=== PATIENT | male | born 1975 | race Caucasian/White ===

== ENCOUNTER 2025-05-19 08:35 | Outpatient (CLI) | payer OTHER, SELFPAY ==
--- NOTE | 2025-05-19 08:43 | ECG_ITS ---
Test Date: 2025-05-19 09:00:15 Measurements Intervals [place] Rate: 80 P: 45 UT: 175 QRS: 82 QRSD: 100 T: -25 QT: 339 QTc: 392 Interpretive Statements SINUS RHYTHM NONSPECIFIC T-WAVE ABNORMALITY No previous ECG available for comparison Electronically Signed On 05-19-2025 13:34:20 CONSTRUCTION FIELD ENGINEER by Samir Aranda M.D.
[2025-05-19 10:24] LABS: Anion Gap 9 mmol/L (4-12); Blood Urea Nitrogen 19 mg/dL (9-20); Calcium 10.1 mg/dL (8.4-10.2); Carbon Dioxide 28 mmol/L (22-30); Chloride 103 mmol/L (98-107); Estimated Glomerular Filt Rate > 60; Glucose 114 mg/dL (65-110); Potassium 4.4 mmol/L (3.4-5.0); Sodium 140 mmol/L (137-145)
== END 2025-05-19 08:36 | disposition home or self-care (01) ==
LOC: ANHSURGERY 08:39
PROVIDERS: Anesthesiology; PCP Nurse Practitioner; Visit Provider Orthopaedic Surgery
DX: E10.9 Type 1 diabetes mellitus without complications (principal); I10 Essential (primary) hypertension; Z01.818 Encounter for other preprocedural examination
CPT/HCPCS: 36415; 80048; 93005

== ENCOUNTER 2025-05-25 03:27 | Day surgery (SDC) | payer OTHER, SELFPAY ==
--- OUTSIDE RECORDS SUMMARY | 2011-02-26 18:00 | XMS_ITS | Continuity of Care Document ---
Author Organization [employer] [address] Address [address] [place] [address] Phone Care Team Providers Care Maintenance Service Supervisor Name Role Phone Conversion MD, Doctor Unavailable Unavailabl e Allergies, Adverse Reactions, Alerts Substance Reaction Status Criticality ciprofloxacin Other Active No Information CIPROFLOXACIN HCL Other Active No Informa tion Medications Medication Instructions Dosage Effective Dates (start - stop) Status Comments SIMVASTATIN 20MG TABS 1 QHS - Active ACTOS 15MG TABS 1 QD-daily - Active LANTUS 100 UNITS/ML VIAL 75 QHS - Active CLARITIN 10MG TABS 1 QD-daily - Active NASACORT AQ 55MCG APPLICS 2 QD-daily - Active TRILIPIX 45MG CAPS 1 QD-daily - Active GLUCOPHAGE XR 500 MG TAB SA 4 QPM - Active ZETIA 10MG TABS 1 DAILY - Active APIDRA 100 UNITS/ML VIAL 0 DIRECTE - Active 150-200 3 U, 200-250 5U, 250-300 8U, 300-350 10U, >350 12U holding 08/01 NEXIUM 40MG CAPS 1 QD - Active LANTUS 100 UNITS/ML VIAL 74 QHS - No Longer Active LANTUS 100 UNITS/ML VIAL 65 QHS - No Longer Active LANTUS 100 UNITS/ML VIAL 55 QHS - No Longer Active ALPRAZOLAM 0.5MG TABS 1 BID - No Longer Active LANTUS 100 UNITS/ML VIAL 50 QHS - No Longer Active VYTORIN 10-10 MG TABLET 0 DIRECTE - No Longer Active hold 03/31 LANTUS 100 UNITS/ML VIAL 35 QHS - No Longer Active VYTORIN 10MG-10MG TABS 1 QPM - No Longer Active GLUCOPHAGE XR 500 MG TAB SA 3 QPM - No Longer Active LANTUS 100 UNITS/ML VIAL 50 DIRECTE - No Longer Active holding 08/01 ZETIA 10MG TABS 1 DAILY - No Longer Active LANTUS 100 UNITS/ML VIAL 50 DIRECTE - No Longer Active APIDRA 100 U/ML UNITS 0 DIRECTE - No Longer Active 150-200 3 U, 200-250 5U, 250-300 8U, 300-350 10U, >350 12U GLUCOPHAGE XR 500MG TABS 2 QPM - No Longer Active LANTUS 100 U/ML UNITS 20 DIRECTE - No Longer Active AVANDIA 4MG TABS 1 QAM - No Longer Active MINOCYCLINE HCL 100MG CAPS 1 BID - No Longer Active Advance Directives Directive Yes / No Effective Date File Name No Information Encounters Encounter Description Practice Location Reason(s) For Visit Diagnoses Date Provider Providers Copied on Encounter [facility], [address], [place], [place], [id number] , [place] tel:[phone] Conversion Department No Information 1 Conversion Doctor. Jessica Amaya, [place], [address], [place]. [facility], [address], [place], [place], [address] , [place] tel:[phone] [facility] LONG-TERM USE MEDS NECHYPERLIPIDEMIA NEC/NOSBARRETT'S ESOPHAGUSDMI WO CMP NT ST UNCNTRLCHRONIC LIVER DIS NEC 2-201 [address] [place] [address] [place], [place], [address]. tel: [phone] [facility], [address], [place], [place], [address] , [place] tel: [phone] Krissy CHEST SWELLING/MASS/LUM P 2-201 0 [place] [address] [place], [place], [address]. tel: [phone] [facility], [address], [place], [place], [address] , [place] tel: [phone] [facility] DMI WO CMP UNCNTRLDMIXED HYPERLIPIDEMIAESO PHAGEAL REFLUXCHRONIC SINUSITIS NOS 8200 9 [place] [address] [place], [place], [address]. tel: [phone] [facility], [address], [place], [place], [address] , [place] tel: [phone] [facility] DMII WO CMP NT ST UNCNTR 3-200 9 [place] [address] [place], [place], [address]. tel: [phone] [facility], [address], [place], [place], [address] , [place] tel: [phone] [facility] ANXIETY STATE NOS 9-200 9 [place] [address] [place], [place], [address]. tel: [phone] [facility], [address], [place], [place], [address] , [place] tel: [phone] [facility] DMI NEURO UNCNTRLDSCREEN MAL NEOP-RECTUM 8-200 9 [place] [address] [place], [place], [address]. tel: [phone] [facility], [address], [place], [place], [address] , [place] tel: [phone] Krissy CHEST PAIN NEC 200 [address] [place] [address] [place], [place], [address]. tel:[phone] [employer] [facility] [address], [address], [place], [place], [address] , [place] tel: [phone] Krissy ND VAC STRPTCS PNEUMNI BVACCIN FOR INFLUENZA 200 [address] [place] [address] [place], [place], [address]. tel:[phone] [facility], [address], [place], [place], [address] , [place] tel: [phone] Krissy GOUT NOS 8 [place] [address] [place], [place], [address]. tel:[phone] [facility], [address], [place], [place], [address] , [place] tel: [phone] Krissy DMI RENL NT [facility] KIDNEY DIS STAGE II 8 [place] [address] [place], [place], [address]. tel:[phone] [facility], [address], [place], [place], [address] , [place] tel: [phone] Krissy ACUTE SINUSITIS NOS 0200 7 Conversion Doctor. [address] [facility], [place], [address], [place]. [facility], [address], [place], [place], [address] , [place] tel: [phone] Krissy ROTATOR CUFF RUPTURE 9200 [address] [place] [address] [place], [place], [address]. tel:[phone] [employer] [address], [address], [place], [place], [address] , [place] tel: [phone] Krissy No Information 7-200 6 [place] [address] [place], [place], [address]. tel:[phone] [facility], [address], [place], [place], [address] , tel: [phone] Krissy SCREEN LIPOID DISORDERS 6 Clari Chinchillaorah. [address] [place], [place], [address]. tel:[phone] [facility], [address], [place], [place], [address] , tel: [phone] Krissy ROUTINE MEDICAL EXAM 6 [place] [address] [place], [place], [address]. tel:[phone] Family History Family Member Type Diagnosis Age At Onset No Information Immunizations Vaccine Date Status Comments 54521 - Pneumococcal_PPV23 administered S ource: Source Unspecified 07205 - Influenza administered Source: So urce Unspecified Payers Payer name Insurance type Covered green party ID Authoriza tion(s) No Information Social History Type Description Quantity Date Captured Comments Sex Male Smoking Status No Information Chief Complaint And Reason For Visit No Information Reason For Referral Reason For Referral No Information History Of Present Illness Encounter Date Complaint History Of Prese nt Illness No Information Functional Status Date Functional Assessmen t No Information Instructions Date Instruction Additional Infor mation No Information Assessments Type Assessment Date No Information Patient Care Teams Name Effective Dates (start - stop) Status Members No Information
[2025-05-18 14:42] VITALS: BMI 29.0
--- NOTE | 2025-05-18 15:16 | PC.NURSE ---
[facility] has started construction of its new state of the art ER which will open Spring 2026. With this, we anticipate parking may be a challenge for some our surgical patients and families. Parking spaces are limited but are available for all Surgical, obstetrics, and ER patients sharing this lot. If you arrive and find you are having a hard time finding a parking space, please note that we understand the challenges, please drive around the hospital and park near Hospital Entrance 1. When you enter this entrance, you can ask a volunteer to direct or take you back to the surgical waiting area to check in. We appreciate everyone?s understanding of these expected challenges while we build for your future. Report to the Outpatient Waiting Room, entrance under the green pavilion located off [facility] [address], at time _10:00AM on date _05/25/25 . Planned Procedure Time: _12:00AM .? Time changes happen often and if your time is changed the preop area will call you the afternoon before. - You and your visitor will be asked to self-screen and do not enter if you have any COVID symptoms. Please call surgeon if you need to reschedule. - A mask is optional within the hospital at this time. Patients may have clear liquids (water, carbonated beverages, clear teas, apple juice) until 3 hours prior to surgery(09:00AM) with a maximum of 20 ounces. - No food from midnight until time of surgery and no smoking, or chewing tobacco (or any form of nicotine). No chewing gum, candy or mints. Take only the following medications with a SIP of water on the morning of surgery: _NIFEDIPINE, TRAMADOL IF NEEDED, FLEXERIL IF NEEDED DO NOT ALTER INSULIN PUMP BASAL RATE; APPLY DEXCOM TO RT ARM DO NOT STOP ANY OF YOUR OTHER PRESCRIPTION MEDICATIONS PRIOR TO SURGERY EXCEPT THE FOLLOWING Hold all vitamins and supplements for 3 days per anesthesiologist. Medications to discontinue per physician ____N/A Date to take last dose N/A Please no make-up, nail citizen of [place], hairspray, perfume, deodorant, or body powder the day of surgery.? No jewelry (including any body piercings) or valuables the day of surgery, leave them at home.? Please take a shower or bath the night before, or the morning of, surgery with an antibacterial soap.? Wear comfortable, loose fitting clothing.? - Jewelry must be removed prior to entering the operating room.? Rings and piercings that are not removed may be cut off. - The hospital will not accept responsibility for valuables.? - Please leave all valuables, including medications, at home the day of surgery. If you are going home after surgery, a licensed mobile lounge driver must drive you home.? - NO public transportation without another adult if you receive anesthesia. - We recommend that an adult stay with you for 24 hours following discharge. - We also recommend that you do not drive, make important decision, drink alcoholic beverages, or take any drugs that were not prescribed by your health care provider for at least 24 hours after your discharge time. Follow any additional instructions given to you from your surgeon. Telephone instructions given to __DOUG ;-) and asked if any additional questions and then verbalized understanding. Patient advised to call surgeon office or pre surgery nurse liaison [phone] if any additional questions.
[2025-05-25] VITALS (7 sets, daily range): BP systolic 120–148; BP diastolic 78–93; PULSE 77–90; RESP 16–22; TEMP 36.8–37.2; O2SAT 97–100
--- OUTSIDE RECORDS SUMMARY | 2025-05-25 03:30 | XMS_ITS | Encounter Summary ---
Author Organization [facility] Address [facility] [place] [address] Care Team Providers Care Poker Prop Player Name Role Phone Pravin Rowley MD Unavailable [phone] Apple Myles NP Primary Care Provider [phone] Yohannes Heart MD Unavailable [phone] Reason for Referral * Surgical (Routine) - Closed Specialty Diagnoses / Procedures Referred By Ravinder villanueva Referred To Contact Procedures Case request operating room: INJECTION EPIDURAL TRANSFORAMINAL L5-S1 Juanita Hart NP [address] [facility] [address] [place] [address] Phone: tel: [phone] fax: Referral ID Status Reason Start Date Expiration Date Visits Re quested Visits Authorized [id number] Closed 12/14/2020 01/13/2022 1 1 Encounter Details Date Type Department Care Team (Late st Contact Info) Description 12/14/2020 Prep for Procedure [facility] [place] [address] [id number] Juanita Hart NP [address] [facility] [address] [place] [phone] (Work) Social History Tobacco Use Types Packs/Day Years Used Date Smoking Tobacco: Former Cigarettes 2 17 0 03/13/1988 - 2004 Cigars Smokeless Tobacco: Never Alcohol Use Standard Drinks/Week Comments Not Currently 0 (1 standard drink = 0.6 oz pur e alcohol) PHQ-2 Answer Date Recorded PHQ-2 Score - If the patient scores above 3, please move on to questions 3-9 1 09/06/2020 Sex and Gender Information Value Date Recorded Sex Assigned at Male 07/19/2024 5:02 PM REIKI PRACTITIONER Legal Sex Male 8:01 PM CDT Gender Identity Not on file Sexual Orientation Not on file Occupation Industry Job Start Date Job End Date [employer] Not on file Not on file Not on file COVID-19 Exposure Response Date Recorded In the last month, have you been in contact with someone who was confirmed or suspected to have Coronavirus / COVID-19? No / Unsure 12/14/2020 1:01 PM CDT documented as of this encounter Functional Status * RETIRED Are you deaf or do you have serious difficulty hearing Answer Date of Assessment Author Status No 06/03/2020 7:19 PM REIKI PRACTITIONER Activ e * RETIRED Are you blind or do you have serious difficulty seeing, even when wearing glasses? Answer Date of Assessment Author Status No 06/03/2020 7:19 PM REIKI PRACTITIONER Activ e * Do you have serious difficulty walking or climbing stairs? Answer Date of Assessment Author Status No 06/03/2020 7:19 PM Jazmín Giles RN Active * Do you have difficulty dressing or bathing? Answer Date of Assessment Author Status Yes 06/03/2020 7:19 PM Jazmín Giles RN Active * Because of a physical, mental, or emotional condition, do you have difficulty doing errands alone such as visiting a doctor's office or shopping? Answer Date of Assessment Author Status No 06/03/2020 7:19 PM Jazmín Giles RN Active documented as of this encounter Mental Status * Because of a physical, mental, or emotional condition, do you have serious difficulty concentrating, remembering, or making decisions? Answer Entry Date Author Status No 06/03/2020 7:19 PM Jazmín Giles RN Active documented in this encounter Plan of Treatment Scheduled Orders Name Type Priority Associated Diagnoses Order Schedule Case request operating room: INJECTION EPIDURAL TRANSFORAMINAL L5-S1 Case Request Routine Once for 1 Occurrences starting 12/14/2020 until 12/14/2020 documented as of this encounter Visit Diagnoses Not on filedocumented in this encounter Additional Health Concerns Infection Onset Date Last Indicated Resolved Time COVID-19 Rule Out 07/19/2024 07/19/2024 07/19/2024 6:00 PM REIKI PRACTITIONER documented as of this encounter Care Teams Poker Prop Player Relationship Specialty Start Date End Date Apple Myles NP [address] [place] [address] PCP - General NURSE PRACTITIONER 01/21/20 Pravin Rowley MD [address] [address] [place] Examiner CARDIOVASCULAR DISEASE 12/17/17 06/08/24 Yohannes Heart MD [address] [place] [address] INTERNAL MEDICINE 05/31/20 documented as of this encounter
--- OUTSIDE RECORDS SUMMARY | 2025-05-25 03:30 | XMS_ITS | Encounter Summary ---
Author Organization [facility] Address [address] [place] [address] Care Team Providers Care Short Goods Drier Name Role Phone Pravin Rowley MD Unavailable [phone] Apple Myles NP Primary Care Provider [phone] Yohannes Heart MD Unavailable [phone] Encounter Details Date Type Department Care Team (Late st Contact Info) Description 08/15/[address] [facility] - [place] [address] [place] [address] Apple Myles NP [address] [place] [address] Medication Questions Social History Tobacco Use Types Packs/Day Years Used Date Smoking Tobacco: Former Cigarettes 2 17 1 988 - 2005 Smokeless Tobacco: Never Alcohol Use Standard Drinks/Week Comments Yes 5 (1 standard drink = 0.6 oz pur e alcohol) weekly a few beers PHQ-2 Answer Date Recorded PHQ-2 Score 0 01/21/2020 Sex and Gender Information Value Date Recorded Sex Assigned at Male 07/19/2024 5:02 PM FLY TIER Legal Sex Male 8:01 PM CDT Gender [...] have Coronavirus / COVID-19? No / Unsure 08/03/2020 8:38 AM FLY TIER documented as of this encounter Functional Status * RETIRED Are you deaf or do you have serious difficulty hearing Answer Date of Assessment Author Status No 06/03/2020 7:19 PM FLY TIER Activ e * RETIRED Are you blind or do you have serious difficulty seeing, even when wearing glasses? Answer Date of Assessment Author Status No 06/03/2020 7:19 PM FLY TIER Activ e * Do you have serious [...] Giles RN Active documented in this encounter Progress Notes * Apple Myles NP - 08/19/2020 10:33 AM CST I spoke to pt and questions answered He is going to call endo today to discuss insulin pump TIER * Apple Myles NP - 08/17/2020 9:08 AM CST I called pt and left message TIER * Lexx Sanchez RN - 08/15/2020 2:10 PM CST Please advise. Thanks TIER documented in this encounter Plan of Treatment Not on file documented as of this encounter Visit Diagnoses Not on filedocumented in this encounter Additional Health Concerns Infection Onset Date Last Indicated Resolved Time COVID-19 Rule Out 07/19/2024 07/19/2024 07/19/2024 6:00 PM FLY TIER documented as of this encounter Care Teams Short Goods Drier Relationship Specialty Start Date End Date Apple Myles NP [address] [place] [address] PCP - General NURSE PRACTITIONER 01/21/20 Pravin Rowley MD [facility]. [facility] [address] [place] [address] [place] [facility] Chief CARDIOVASCULAR DISEASE 12/17/17 06/08/24 Yohannes Heart MD [address] [place] [address] INTERNAL MEDICINE 05/31/20 documented as of this encounter
--- OUTSIDE RECORDS SUMMARY | 2025-05-25 03:30 | XMS_ITS | Clinical Summary ---
Author Organization [facility] Address [facility] [place] [address] Care Team Providers Care Weigher Alloy Name Role Phone Shameka Apple WELLS Primary Care Provider [phone] Yohannes Heart MD Unavailable [phone] Allergies Active Allergy Reactions Criticality Noted Date Comments Ciprofloxacin Shortness of Breath,Rash High 11/23/19 18 Medications fish oil 1000 MG Cap capsule Take 1 capsule (1,000 mg total) by mouth daily. Active vitamin D3, cholecalciferol, 2000 units Tab Take 1 tablet (2,000 Units total) by mouth daily. 2017 Active Melatonin 5 MG Cap Take 1 capsule by mouth nightly. 2017 Active CPAP MACHINE CPAP11 CM HS use while [id number], VentrapragadaActive 2017 Active testosterone cypionate 200 MG/ML injection Inject 1 mL (200 mg total) into the muscle once a week. Sundays Active magnesium oxide 400 MG tablet Take 1 tablet (400 mg total) by mouth nightly. Active cetirizine 10 MG tablet Take 1 tablet (10 mg total) by mouth daily. 2019 Active ULTICARE INSULIN SYRINGE 29G X 1/2 1 ML Misc see administration instructions. 2020 Active SAFETY-GABRIEL 3CC SYR 23GX1 23G X 1 3 ML Misc see administration instructions. 2020 Active Continuous Blood Gluc Animal Physiology Teacher (DEXCOM G7 GLOVE BRUSHER) DeviceIndication s:Type 1 diabetes mellitus with hyperglycemia (CMS/HCC HHS/HCC) Use daily 1 each 1 2022 Active SUMAtriptan (IMITREX) 50 MG tablet Take 1 tablet (50 mg total) by mouth 2 (two) times daily as needed for Migraine. Max of 4 tablets (200 mg) in 24 hours. 30 tablet 2023 Active metFORMIN ER (GLUCOPHAGE-XR) 500 MG 24 hr tabletIndication s:Type 2 diabetes mellitus with hyperglycemia, without long-term current use of insulin ([facility]) TAKE 1 TABLET BY MOUTH EVERY DAY WITH BREAKFAST 90 tablet 3 2024 Active ondansetron (ZOFRAN-ODT) 4 MG disintegrating tablet Take 1 tablet (4 mg total) by mouth every 8 (eight) hours as needed for Nausea. 20 tablet 2024 Active insulin lispro (HUMALOG) 100 UNIT/ML injection (VIAL)Indication s:Type 1 diabetes mellitus without complication ([facility]) USE UP TO 110 UNITS DAILY PER PUMP 100 mL 3 2024 Active NIFEdipine ER (ADALAT CC) 30 MG 24 hr tabletIndication s:Essential hypertension Take 1 tablet (30 mg total) by mouth daily. 90 tablet 2024 Active pantoprazole EC (PROTONIX) 40 MG tabletIndication s:Health care maintenance TAKE 1 TABLET BY MOUTH 2 TIMES DAILY BEFORE MEALS. 180 tablet 1 2024 Active sertraline (ZOLOFT) 50 MG tablet Take 1 tablet (50 mg total) by mouth daily. 2024 Active traZODone (DESYREL) 50 MG tabletIndication s:Insomnia, unspecified type Take 1 tablet (50 mg total) by mouth nightly at bedtime. 90 tablet 1 08/02 Active losartan (COZAAR) 25 MG tabletIndication s:Essential hypertension Take 1 tablet (25 mg total) by mouth daily. 90 tablet 1 2024 Active fluticasone propionate (FLONASE) 50 MCG/ACT nasal spray spray 2 sprays in each nostril twice a day 2024 Active ARMOUR THYROID 60 MG tablet Take 1 tablet (60 mg total) by mouth daily. 2024 Active Continuous Glucose Sensor ([employer] G7 SENSOR) MiscIndications: Diabetes mellitus type 1 ([facility]) USE TO MONITOR BLOOD SUGAR DAILY. CHANGE EVERY 10 DAYS. 9 each 9 2024 Active cyclobenzaprine (FLEXERIL) 10 MG tabletIndication s:Chronic left shoulder pain,Abnormal MRI TAKE 1 TABLET BY MOUTH EVERY DAY NIGHTLY NEEDED FOR MUSCLE SPASMS 30 tablet 1 2024 Active cyclobenzaprine (FLEXERIL) 10 MG tabletIndication s:Chronic left shoulder pain,Abnormal MRI Take 1 tablet (10 mg total) by mouth nightly as needed for Muscle Spasms. 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 Cervical spine instability 06/03/2020 S/P cervical spinal fusion 06/03/2020 Radiculopathy, cervical 05/04/2020 DDD (degenerative disc disease), cervical 2019 Cervical stenosis of spine 05/04/2020 Cervical disc herniation 05/04/2020 Foraminal stenosis of cervical region 05/04/2020 Other intervertebral disc degeneration, lumbar r egion 07/31/2018 Bulging lumbar disc 07/31/2018 Lumbar foraminal stenosis 07/31/2018 S/P cardiac cath 02/04/2018 CPAP (continuous positive airway pressure) depen dence 12/17/2017 Leukopenia 11/28/2017 Obese 02/05/2017 Callejas esophagus 01/28/2017 Fatty liver 09/27/2016 Insomnia 02/22/2016 Impingement syndrome of right shoulder 2 Essential hypertension Hyperlipidemia Resolved Problems Problem Noted Date Diagnosed Date Resolved Date Type 1 diabetes mellitus wit h diabetic peripheral angiopathy without gangrene 07/14/2019 0 08/07/2022 Low back pain 11/22/2017 04/29/2019 RAY (obstructive sleep apnea) 10/14/2017 04/29/2019 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 0 08/07/2022 Overview (02/10/2018): of LAD on angiogram in 2018 Hypercalcemia 08/02/2014 02/21/2020 Elevated liver enzymes 02/15/201408/07 Type 2 diabetes mellitus 02/24/2013 Encounter for preventive health examination 02/18/2012 04/29/2019 SOBOE (shortness of breath on exertion) 04/29/2019 Abnormal EKG 04/29/2019 Encounters Date Type Department Care Team Description 04/08/2025 Scan [facility] Scanned, Doc Med [facility] 03/01/2025 12:00 PM CDT Telemedicine [facility] Medical Group Family Medicine - [place] [address] [place] [address] Apple Myles NP MRI Results 03/01/2025 Travel 02/25/2025 Scan [facility] SRVCS Scanned, Doc Med [facility] from Last 3 Months Immunizations Immunization Administration Dates Next Due Afluria 36 MONTHS+ (Prefille d Syringe IIV4) 05/18/2019 Fluzone 6 Months+ Quad (0.5 mL Prefilled Syringe) 03/06/2020 Influenza (Generic) 05/05/2014 Influenza Adult (Generic) 04/25/2020,04/2019,06/09/2018,2017 PFIZER COVID-19 (ORIGINAL FORMULATION, PURPLE CAP) mRNA, LNP-S, PF, 30 MCG/0.3 ML DOSE 09/20/2020,08/30/2020 Pneumococcal (Pneumovax 23) 06/09/2015 Tdap (Boostrix) 09/18/2023 Family History Medical History Relation Comments Hypertension Father Seizures Father ibs Father Diabetes Maternal Grandfather Breast Cancer Maternal Grandmother Cancer Maternal Grandmother Breast canc er Cancer Maternal Uncle Lung cancee Arthritis Mother Breast Cancer Mother Cancer Mother Breast cancer Alzheimers Other Relation Status Comments Daughter 1 Alive Daughter 2 Alive Father Alive Maternal Grandfather Maternal Grandmother Maternal Uncle Mother Alive Other Son Alive Social History Tobacco Use Types Packs/Day Years Used Date Smoking Tobacco: Former Cigarettes 2 17 1 988 - 2005 Cigars Passive Smoke Exposure: Past Smokeless Tobacco: Never Tobacco Cessation:Counseling Given: No Alcohol Use Standard Drinks/Week Comments Not Currently 0 (1 standard drink = 0.6 oz pur e alcohol) socially / but rarely [facility] Utilities Answer Date Recorded In the past 12 months has th e electric, gas, oil, or water company threatened to shut off services in your home? No 04/24/2024 Humiliation, Afraid, Rape, and Kick questionnair e Answer Date Recorded Within the last year, have y ou been afraid of your partner or ex-partner? No 04/24/2024 Within the last year, have y ou been humiliated or emotionally abused in other ways by your partner or ex-partner? No Within the last year, have y ou been kicked, hit, slapped, or otherwise physically hurt by your partner or ex-partner? No 04/24/2024 Within the last year, have y ou been raped or forced to have any kind of sexual activity by your partner or ex-partner? No 04/24/2024 Overall Financial Resource Strain (CARDIA) Answe r Date Recorded How hard is it for you to pa y for the very basics like food, housing, medical care, and heating? Not hard at all 04/24/2024 PHQ-2 Answer Date Recorded Patient Health Questionnaire-2 Score 0 02/03/2025 Hunger Vital Sign Answer Date Recorded Within the past 12 months, y ou worried that your food would run out before you got the money to buy more. Never true 04/24/20 24 Within the past 12 months, t he food you bought just didn't last and you didn't have money to get more. Never true 04/24/2024 PRAPARE - Transportation Answer Date Re corded In the past 12 months, has l ack of transportation kept you from medical appointments or from getting medications? No 06/2023 In the past 12 months, has l ack of transportation kept you from meetings, work, or from getting things needed for daily living? No 04/24/2024 Housing Stability Vital Sign Answer Chong e Recorded In the last 12 months, was t here a time when you were not able to pay the mortgage or rent on time? No 06/27/2023 In the last 12 months, how many places have you lived? 1 06/27/2023 In the last 12 months, was t here a time when you did not have a steady place to sleep or slept in a mcfp (including now)? No 06/27/2023 Housing Stability Vital Sign Answer Chong e Recorded In the last 12 months, was t here a time when you were not able to pay the mortgage or rent on time? No 04/24/2024 In the past 12 months, how m any times have you moved where you were living? 0 04/24/2024 At any time in the past 12 m [facility], were you homeless or living in a mcfp (including now)? 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 Not on file Not on file Not on file Last Filed Vital Signs Vital Sign Reading Time Taken Comments Blood Pressure 148/93 02/03/2025 2:11 PM CDT Pulse 77 02/03/2025 1:26 PM CDT Temperature 36.4 C (97.5 F) 02/03/2025 1:26 PM CDT Respiratory Rate 18 02/03/2025 1:26 PM CDT Oxygen Saturation 98% 02/03/2025 1:26 PM CDT Inhaled Oxygen Concentration - - Weight 97 kg (213 lb 12.8 oz) 02/03/2025 1:26 PM CDT Height 180.3 cm (5' 11) 02/03/2025 1:26 PM CDT Body Mass Index 29.82 02/03/2025 1:26 PM CDT Plan of Treatment Health Maintenance Due Date Last Done Comments Hepatitis C 1992 Hepatitis A Vaccines (1 of 2 - Risk 2-dose series) 1993 Hepatitis B Vaccines (1 of 3 - 19+ 3-dose series) 1993 Pneumococcal Vaccine: 50+ Years (2 of 2 - PCV) 06/09/2016 06/09/2015 Annual Physical 06/01/2022 06/01/2021 Diabetes: Retinopathy Eye Exam 04/17/2024 04/17/2022, 04/21/2021, 04/05/2020 Zoster Vaccines (1 of 2) 2024 COVID-19 Vaccine ( - 2024- season) 2025 09/20/2020, 08/30/2020 Influenza Adult (#1) 2025 04/25/2020, 03/06/2020, 06/03/2019, Additional history exists Hemoglobin A1C 08/06/2025 02/03/2025, 11/0 06/2023, 06/18/2023, Additional history exists Kidney Health Evaluation 02/03/2026 02/03/2025 Lipid Panel 02/03/2026 02/03/2025, 07/08/2022, 06/19/2021, Additional history exists EGD-Callejas's Surveillance 09/09/2026 09/10/2023, Colorectal Cancer Screening Colonoscopy (10 Years) 09/09/2033 09/10/2023, 09/10/2023 DTaP, Tdap and Td Vaccines (2 - Td or Tdap) 09/17/2033 09/18/2023 PHQ-2 (Physician [place]) Completed 02/03/2025 Meningococcal B Vaccine Aged Out No l onger eligible based on patient's age to complete this topic Meningococcal Vaccine Aged Out No gurwinder tulio eligible based on patient's age to complete this topic RSV Immunizations Under 20 Months Aged Out No longer eligible based on patient's age to complete this topic Goals Goal Patient Goal Type Associated Problems Recent Progress Patient-Stated? Author Family - family caregiver with be involved in care transitions and discharge planning Lifestyle No Asha Worthington, REGISTRAR COLLEGE OR UNIVERSITYepidemiology investigator Devices Implanted Type Area Rim Roller Operator Device Identifier Shelf Expiration Date Model / Serial / Lot Bio4 Viable Bone Matrix Spine Implanted:Qty : 1 on 06/03/2020 by Ted Sargent MD at [facility] N/A: Spine Cervical [employer] - DIV [employer]LLY [employer]OWAN 10/30/[id number] 160 [place] Interbody System (Cervical Interbody) [id number] 7degree Implanted:Qty : 1 on 06/03/2020 by Ted Sargent MD at [facility] N/A: Spine Cervical [employer] - DIV [employer] [id number] 02/08/2025 [id number] / / [id number] Description:C6-C7 [place] Interbody System (Cervical Interbody) [id number] 7degree Implanted:Qty : 1 on 06/03/2020 by Ted Sargent MD at [facility] N/A: Spine Cervical [employer] - [employer] [id number] 02/08/2025 [id number] / / [id number] 34 Description:C5-C6 16 Mm Self Tapping Screw Implanted:Qty : 1 on 06/03/2020 by Ted Sargetn MD at [facility] N/A: Spine Cervical [employer] - DIV [employer]OWAN [id number] / / 44mm Plate Implanted:Qty : 1 on 06/03/2020 by Ted Sargent MD at [facility] N/A: Spine Cervical [employer] - [employer] [id number] / / [id number] Implanted:Qty : 1 on 06/03/2020 by Ted Sargent MD at [facility] N/A: Spine Cervical [employer] - [employer]OW[employer] [id number] / [id number] / Explanted Type Area Rim Roller Operator Device Identifier Shelf Expiration Date Model / Serial / Lot Distration Pin 12mm - [id number] Explanted:Qty: 2 on 06/03/2020 by Ted Sargent MD at [facility] Pin N/A: Spine Cervical [employer] [id number] / / Procedures Procedure Name Priority Date/Time Associated Diagnosis Comments HC LIPID PANEL Routine 02/03/2025 4:20 PM CDT Type 1 diabetes mellitus without complication (CMS/HCC HHS/HCC) HC GLYCOSYLATED HGB Routine 02/03/2025 4 :20 PM CDT Type 1 diabetes mellitus without complication (CMS/HCC HHS/HCC) EGD Routine 09/10/2023 12:51 PM CDT COLONOSCOPY Routine 09/10/2023 12:51 PM CDT DIABETIC RETINOPATHY EXAM (NEGATIVE)(SCAN ORDER) Routine 04/17/2022 from Last 3 Months or Most Recently Relevant to Health Maintenance Results * (ABNORMAL) HEMOGLOBIN, GLYCOSYLATED (02/03/2025 4:20 PM CDT) HGB A1C 7.6(H) <5.7 % 02/03/2025 4:50 PM CDT [facility] Comment: ADA GUIDELINES 2010 5.7 TO 6.4% INCREASED RISK OF DIABETES > OR = 6.5% CONSISTENT WITH DIABETES ESTIMATED AVG GLUCOSE 171 mg/dL 02/03/2025 4:50 PM CDT [facility] 02/03/2025 4:20 PM CDT Apple Myles NP LABORATORY Final Result [facility] [address] [id number], [place] [phone] * (ABNORMAL) LIPID PANEL (02/03/2025 4:20 PM CDT) CHOLESTEROL 200(H) <200 MG/DL 02/03/2025 5:07 PM CDT [facility] TRIGLYCERIDES 363(H) <150 MG/DL 02/03/2025 5:07 PM CDT [facility] HDL 38(L) >40.0 MG/DL 02/03/2025 5:07 PM CDT [facility] LDL (CALCULATED) 89 <100 MG/DL 02/03/2025 5:07 PM CDT [facility] Comment:CALCULATED USING THE FRIEDEWALD EQUATION NON HDL CHOLESTEROL 162(H) <130 MG/DL 02/03/2025 5:07 PM CDT [facility] CHOL/HDL RATIO 5.3(H) 0.0 - 4.5 02/03/2025 5:07 PM CDT [facility] VLDL CALCULATION 73(H) 5 - 55 MG/DL 02/03/2025 5:07 PM CDT [facility] LIPID INTERPRETATION 02/03/2025 5:07 PM CDT [facility] Comment: NIH CONCENSUS REPORT RECOMMENDATIONS: ADULT CHILD LOW RISK: CHOLESTEROL <200 <170 TRIGLYCERIDE <150 --- HDL >=60 --- LDL <100 <110 BORDERLINE: CHOLESTEROL 200-239 170-199 TRIGLYCERIDE 150-199 --- HDL 40-59 --- LDL 100-159 110-129 HIGH RISK: CHOLESTEROL >=240 >=200 TRIGLYCERIDE >=200 --- HDL <40 --- LDL >=160 >=130 02/03/2025 4:20 PM CDT Apple Myles POSTDOCTORAL SCIENTIST LABORATORY Final Result Performing Organization Address [facility] Phone Number [facility] [address] [place] [address], * DIABETIC RETINOPATHY EXAM (NEGATIVE)(SCAN) (04/17/2022) Doc [facility] Scanned SCANNING Final Resu lt Performing Organization Address [facility] Co de Phone Number [facility] ONBASE from Last 3 Months or Most Recently Relevant to Health Maintenance Insurance R Advance Directives * Full Code (Latest Code Status on File) Date Activated Date Inactivated Comments 04/23/2024 11:17 PM 04/27/2024 3:49 PM * Full Code Date Activated Date Inactivated Comments 06/26/2023 9:26 PM 06/29/2023 2:03 PM * Full Code Date Activated Date Inactivated Comments 06/03/2020 7:05 PM 06/04/2020 6:16 PM Care Teams Weigher Alloy Relationship Specialty Start Date End Date Apple Myles NP [address] [place] [address] PCP - General NURSE PRACTITIONER 01/21/20 Yohannes Heart MD [address] [place] [address] INTERNAL MEDICINE 05/31/20
--- OUTSIDE RECORDS SUMMARY | 2025-05-25 03:30 | XMS_ITS | Encounter Summary ---
Author Organization [facility] Address [facility] [place] [address] Care Team Providers Care Financial Systems Analyst Name Role Phone Pravin Rowley MD Unavailable [phone] Apple Myles NP Primary Care Provider [phone] Yohannes Heart MD Unavailable [phone] Encounter Details Date Type Department Care Team (Latest Contact Info) Description 05/05/2020 [employer] Message Enc [facility] Medical Group Multispecialty Care - [facility] [address] [facility], [address] [place] [address] Gabriel Pacheco MD [address] [place] [id number] RE: Test Results Social History Tobacco Use Types Packs/Day Years Used Date Smoking Tobacco: Former Cigarettes 2 17 1 988 - 2005 Smokeless Tobacco: Never Alcohol Use Standard Drinks/Week Comments Yes 0 (1 standard drink = 0.6 oz pur e alcohol) weekly PHQ-2 Answer Date Recorded PHQ-2 Score 0 01/21/2020 Sex and Gender Information Value Date Recorded Sex Assigned at Male 07/19/2024 5:02 PM PHYSICIAN ASSISTANT CERTIFIED Legal Sex Male 8:01 PM CDT Gender [...] have Coronavirus / COVID-19? No / Unsure 05/04/2020 8:58 AM PHYSICIAN ASSISTANT CERTIFIED documented as of this encounter Plan of Treatment Not on file documented as of this encounter Visit Diagnoses Not on filedocumented in this encounter Additional Health Concerns Infection Onset Date Last Indicated Resolved Time COVID-19 Rule Out Comment:Resolving 05/31/2020 05/31/2020 06/02/2020 1:[address] COVID-19 Rule Out 07/19/2024 07/19/2024 07/19/2024 6:00 PM PHYSICIAN ASSISTANT CERTIFIED documented as of this encounter Care Teams Financial Systems Analyst Relationship Specialty Start Date End Date Apple Myles NP [address] [place] [address] PCP - General NURSE PRACTITIONER 01/21/20 Pravin Rowley MD Three [facility]. [address] [address] [place] Air Route Traffic Controller CARDIOVASCULAR DISEASE 12/17/17 06/08/24 Yohannes Heart MD [address] [place] [address] INTERNAL MEDICINE 05/31/20 documented as of this encounter
--- OUTSIDE RECORDS SUMMARY | 2025-05-25 03:31 | XMS_ITS | Encounter Summary ---
Author Organization [facility] Address [address] [place] [address] Care Team Providers Care Register In Chancery Name Role Phone Pravin Rowley MD Unavailable [phone] Apple Myles NP Primary Care Provider [phone] Yohannes Heart MD Unavailable [phone] Encounter Details Date Type Department Care Team (Late st Contact Info) Description 03/03/2021 [employer] Message Enc [facility] Medical Group Family Medicine - [place] [address] [place] [address] Apple Myles NP [address] [place] [address] RE: Referral Request Social History Tobacco Use Types Packs/Day Years Used Date Smoking Tobacco: Former Cigarettes 2 17 0 03/13/1988 - 2004 Cigars Smokeless Tobacco: Never Alcohol Use Standard Drinks/Week Comments Not Currently 0 (1 standard drink = 0.6 oz pur e alcohol) PHQ-2 Answer Date Recorded PHQ-2 Score - If the patient scores above 3, please move on to questions 3-9 0 02/16/2021 Sex and Gender Information Value Date Recorded Sex Assigned at Male 07/19/2024 5:02 PM DIRECT MARKETING REPRESENTATIVE Legal Sex Male 8:01 PM CDT Gender [...] have Coronavirus / COVID-19? No / Unsure 02/16/2021 8:49 AM CDT documented as of this encounter Functional Status * RETIRED Are you deaf or do you have serious difficulty hearing Answer Date of Assessment Author Status No 06/03/2020 7:19 PM DIRECT MARKETING REPRESENTATIVE Activ e * RETIRED Are you blind or do you have serious difficulty seeing, even when wearing glasses? Answer Date of Assessment Author Status No 06/03/2020 7:19 PM DIRECT MARKETING REPRESENTATIVE Activ e * Do you have serious [...] Rule Out 07/19/2024 07/19/2024 07/19/2024 6:00 PM DIRECT MARKETING REPRESENTATIVE Assessment Noted Time PHQ-9 Depression Total Score: 0 02/17/20 21 8:57 AM CDT documented as of this encounter Care Teams Register In Chancery Relationship Specialty Start Date End Date Apple [place] [address] PCP - General NURSE PRACTITIONER 01/21/20 Pravin Rowley MD [address] [address] [place] Test Director CARDIOVASCULAR DISEASE 12/17/17 06/08/24 Yohannes Heart MD [address] [place] [address] INTERNAL MEDICINE 05/31/20 documented as of this encounter"
--- OUTSIDE RECORDS SUMMARY | 2025-05-25 03:31 | XMS_ITS | Encounter Summary ---
Author Organization [facility] Address [facility] [place] [address] Care Team Providers Care Etiquette Teacher Name Role Phone Pravin Rowley MD Unavailable [phone] Apple Myles NP Primary Care Provider [phone] Yohannes Heart MD Unavailable + [phone] Encounter Details Date Type Department Care Team (Late st Contact Info) Description 06/01/2020 [employer] Message Enc [facility] - [facility] [address] [facility], [address] [place] [id number] Rowan Ibrahim PA [address] [facility] [address] [place], [place] [id number] RE: Question Social History Tobacco Use Types Packs/Day Years [...] Sex Assigned at Male 07/19/2024 5:02 PM CINEMA OR THEATRE MANAGER Legal Sex Male 8:01 PM CDT Gender [...] have Coronavirus / COVID-19? No / Unsure 06/03/2020 9:00 AM CINEMA OR THEATRE MANAGER documented as of this encounter Functional Status documented as of this encounter Mental Status * Question Answer Entry Date Author Status Because of a physical, mental, or emotional condition, do you have serious difficulty concentrating, remembering, or making decisions? No 06/03/2020 7:19 PM CINEMA OR THEATRE MANAGER Jazmín Kenney R N Active documented in this encounter Plan of Treatment Not on file documented as of this encounter Visit Diagnoses Not on filedocumented in this encounter Additional Health Concerns Infection Onset Date Last Indicated Resolved Time COVID-19 Rule Out Comment:Resolving 05/31/2020 05/31/2020 06/02/2020 1:[address] COVID-19 Rule Out 07/19/2024 07/19/2024 07/19/2024 6:00 PM CINEMA OR THEATRE MANAGER documented as of this encounter Care Teams Etiquette Teacher Relationship Specialty Start Date End Date Apple Myles NP [place] [place] [address] PCP - General NURSE PRACTITIONER 01/21/20 Pravin Rowley MD Three [facility]. [address] [address] [place] Reporting Developer CARDIOVASCULAR DISEASE 12/17/17 06/08/24 Yohannes Heart MD [address] [place] [address] INTERNAL MEDICINE 05/31/20 documented as of this encounter
--- OUTSIDE RECORDS SUMMARY | 2025-05-25 03:31 | XMS_ITS | Encounter Summary ---
Author Organization [facility] Address [address] [place] [address] Care Team Providers Care Atomic Process Engineer Name Role Phone Pravin Rowley MD Unavailable [phone] Apple Myles NP Primary Care Provider [phone] Yohannes Heart MD Unavailable [phone] Encounter Details Date Type Department Care Team (Late st Contact Info) Description 07/04/2020 MyChart Message Enc [facility] Family Medicine - [place] 5 [place] [address] Apple Myles NP 5 [place] [address] RE: Question Social History Tobacco Use Types [...] Sex Assigned at Male 07/19/2024 5:02 PM SEATER ASSEMBLER Legal Sex Male 8:01 PM CDT Gender [...] have Coronavirus / COVID-19? No / Unsure 06/10/2020 8:53 AM SEATER ASSEMBLER documented as of this encounter Functional Status * RETIRED Are you deaf or do you have serious difficulty hearing Answer Date of Assessment Author Status No 06/03/2020 7:19 PM SEATER ASSEMBLER Activ e * RETIRED Are you blind or do you have serious difficulty seeing, even when wearing glasses? Answer Date of Assessment Author Status No 06/03/2020 7:19 PM SEATER ASSEMBLER Activ e * Do you have serious [...] Rule Out 07/19/2024 07/19/2024 07/19/2024 6:00 PM SEATER ASSEMBLER documented as of this encounter Care Teams Atomic Process Engineer Relationship Specialty Start Date End Date [place] [address] PCP - General NURSE PRACTITIONER 01/21/20 Pravin Rowley MD [facility]. [address] [address] [place] Intern CARDIOVASCULAR DISEASE 12/17/17 06/08/24 Yohannes Heart MD 8 [place] [address] INTERNAL MEDICINE 05/31/20 documented as of this encounter
--- OUTSIDE RECORDS SUMMARY | 2025-05-25 03:31 | XMS_ITS | Encounter Summary ---
Author Organization [facility] Address [facility] [place] [address] Care Team Providers Care Call Circuit Worker Name Role Phone Ariza, Bladimir Escalona DO Primary Care Provider [phone] Pravin Rowley MD Unavailable [phone] Apple Myles NP Primary Care Provider [phone] Yohannes Heart MD Unavailable [phone] Encounter Details Date Type Department Care Team (Latest Contact Info) Description 08/01/2018 MyChart Message Enc [facility] Multispecialty Care - [address], [address] [place] [address] Seferino Nguyen MD Medication Questions Social History Tobacco Use Types Packs/Day Years Used Date Smoking Tobacco: Former Cigarettes 2 17 1 988 - 2004 Smokeless Tobacco: Never Alcohol Use Standard Drinks/Week Comments Yes 0 (1 standard drink = 0.6 oz pur e alcohol) weekly Sex and Gender Information Value Date Recorded Sex Assigned at Male 07/19/2024 5:02 PM AUTOMATION MACHINE BUILDER Legal Sex Male 8:01 PM CDT Gender Identity Not on file Sexual Orientation Not on file documented as of this encounter Plan of Treatment Not on file documented as of this encounter Visit Diagnoses Not on filedocumented in this encounter Additional Health Concerns Infection Onset Date Last Indicated Resolved Time COVID-19 Confirmed 02/12/2020 02/12/2020 0 12:33 AM CDT COVID-19 Rule Out 02/12/2020 02/12/2020 02/13/2020 4:59 PM CDT COVID-19 Rule Out Comment:Resolving 05/31/2020 05/31/2020 06/02/2020 1:[address] COVID-19 Rule Out 07/19/2024 07/19/2024 07/19/2024 6:00 PM AUTOMATION MACHINE BUILDER documented as of this encounter Care Teams Call Circuit Worker Relationship Specialty Start Date End Date Bladimir Ariza DO PCP - General 01/10/17 01/20/20 Apple Myles NP [address] [place] [address] PCP - General NURSE PRACTITIONER 01/21/20 Pravin Row[facility] MD [facility] [address] [place] [address] [place]ander CARDIOVASCULAR DISEASE 12/17/17 06/08/24 Yohannes Heart MD 8 [place] [address] INTERNAL MEDICINE 05/31/20 documented as of this encounter
--- OUTSIDE RECORDS SUMMARY | 2025-05-25 03:31 | XMS_ITS | Encounter Summary ---
Author Organization [facility] Address [address] [place] [address] Care Team Providers Care Microsoft Solutions Architect Name Role Phone Ariza, Bladimir Escalona DO Primary Care Provider [phone] Pravin Rowley MD Unavailable [phone] Apple Myles NP Primary Care Provider [phone] Yohannes Heart MD Unavailable [phone] Encounter Details Date Type Department Care Team (Late st Contact Info) Description 02/04/2018 [employer] Message Enc [employer] DEPARTMENT [address] [place] [address] [facility] Provider Social History Tobacco Use Types Packs/Day Years Used Date Smoking Tobacco: Never Smokeless Tobacco: Never Alcohol Use Standard Drinks/Week Comments Yes 0 (1 standard drink = 0.6 oz pur e alcohol) weekly Sex and Gender Information Value Date Recorded Sex Assigned at Male 07/19/2024 5:02 PM TRANSIT MECHANIC Legal Sex Male 8:01 PM CDT Gender [...] Rule Out 07/19/2024 07/19/2024 07/19/2024 6:00 PM TRANSIT MECHANIC documented as of this encounter Care Teams Microsoft Solutions Architect Relationship Specialty Start Date End Date Bladimir Ariza DO PCP - General 01/10/17 01/20/20 Apple Myles NP [address] [place] [address] PCP - General NURSE PRACTITIONER 01/21/20 Pravin Rowley MD Three [facility]. [address] [address] [place] [facility] Care Worker CARDIOVASCULAR DISEASE 12/17/17 06/08/24 Yohannes Heart MD 8 [place] [address] INTERNAL MEDICINE 05/31/20 documented as of this encounter
--- OUTSIDE RECORDS SUMMARY | 2025-05-25 03:31 | XMS_ITS | Encounter Summary ---
Author Organization [facility] Address [facility] [place] [address] Care Team Providers Care Financial Auditor Name Role Phone Pravin Rowley MD Unavailable [phone] Apple Myles NP Primary Care Provider [phone] Yohannes Heart MD Unavailable [phone] Encounter Details Date Type Department Care Team (Late st Contact Info) Description 05/06/2024 MyChart Message Enc [facility] Orthopedic & Sports Medicine - [place] [address] [place] [address] [phone] Bao Iverson NP [address] [facility] [place], [place] [address] [phone] Following up Social History Tobacco Use Types Packs/Day Years Used Date Smoking Tobacco: Former Cigarettes 2 17 1 8 - 2004 Cigars Smokeless Tobacco: Never Alcohol Use Standard Drinks/Week Comments Not Currently 0 (1 standard drink = 0.6 oz pur e alcohol) socially / but rarely [facility] Utilities Answer Date Recorded In the past 12 months has e electric, gas, oil, or water company [...] Date Recorded Patient Health Questionnaire-2 Score 0 05/07/2024 Hunger Vital Sign Answer Date Recorded Within [...] place to sleep or slept in a nursing home (including now)? No 06/27/2023 Housing Stability Vital Sign Answer Chong e Recorded In the last 12 months, was t here a time when you were not able to pay the mortgage or rent on time? No 04/24/2024 In the past 12 months, how m any times have you moved where you were living? 0 04/24/2024 At any time in the past 12 m [facility], were you homeless or living in a nursing home (including now)? 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 Answer Date of Assessment Author Status No 04/24/2024 1:54 AM Abebe Devries se, RN Active * Do you have serious difficulty walking or climbing stairs? Answer Date of Assessment Author Status No 04/24/2024 1:54 AM Abebe Devries se, RN Active * Do you have difficulty dressing or bathing? Answer Date of Assessment Author Status No 04/24/2024 1:54 AM Abebe Devries se, RN Active * Because of a physical, mental, or emotional condition, do you have difficulty doing errands alone such as visiting a doctor's office or shopping? Answer Date of Assessment Author Status No 04/24/2024 1:54 AM Abebe Devries se, RN Active * Over the past 2 weeks, how often have you been bothered by any of the following problems? Question Answer Date of Assessment Author Status Little interest or pleasure in doing things Not at all 05/07/2024 11:53 AM Jasmyne Cosme MA Act orin Feeling down, depressed, or hopeless Not at all 05/07/2024 11:53 AM Jasmyne Cosme MA Active Patient Health Questionnaire-2 Score 0 05/07/2024 11:53 AM Jasmyne Cosme MA Active * Question Answer Date of Assessment Author Status Trouble falling or staying asleep, or sleeping too much Not at all 05/07/2024 11:53 AM Jasmyne Comse MA Active Feeling tired or having little energy Not at all 05/07/2024 11:53 AM Jasmyne Cosme MA Active Poor appetite or overeating Not at all 05/07/2024 11:53 AM Jasmyne Cosme MA Active Feeling bad about yourself - or that you are a failure or have let yourself or your family down Not at all 05/07/2024 11:53 AM Jasmyne Cosme MA Active Trouble concentrating on things, such as reading the newspaper or watching television Not at all 05/07/2024 11:53 AM Jasmyne Cosme MA Active Moving or speaking so slowly that other people could have noticed? Or the opposite - being so fidgety or restless that you have been moving around a lot more than usual. Not at all 05/07/2024 11:53 AM Jasmyne Cosme MA Active Thoughts that you would be better off or hurting yourself in some way Not at all 05/07/2024 11:53 AM Jasmyne Cosme MA Active Patient Health Questionnaire-9 Score 0 05/07/2024 11:53 AM Jasmyne Cosme MA Active * If you checked off any problems on this questionnaire so far, Question Answer Date of Assessment Author Status How difficult have these problems made it for you to do your work, take care of things at home, or get along with other people? Not difficult at all 05/07/2024 11:53 AM Jasmyne Cosme MA Active * Over the last 2 weeks, how often have you been bothered by any of the following problems? Question Answer Date of Assessment Author Status Feeling nervous, anxious, or on edge 0 05/07/2024 11:54 AM Jasmyne Cosme MA Act orin Not being able to stop or control worrying 0 05/07/2024 11:54 AM Jasmyne Cosme MA Ac tive Worrying too much about different things 0 05/07/2024 11:54 AM Jasmyne Cosme MA Ac tive Trouble relaxing 0 05/07/2024 11:54 AM Jasmyne Cosme MA Active Being so restless that it is hard to sit still 0 05/07/2024 11:54 AM CARRIAGE OPERATOR Jasmyne Little M A Active Becoming easily annoyed or irritable 0 05/07/2024 11:54 AM CARRIAGE OPERATOR Jasmyne Little MA Act orin Feeling afraid as if something awful might happen 0 05/07/2024 11:54 AM CARRIAGE OPERATOR Jasmyne Little MA Act orin MARTY-7 Total Score 0 05/07/2024 11:54 AM CARRIAGE OPERATOR Giuseppe whitleyJasmyne MA Active documented as of this encounter Mental Status * Because of a physical, mental, or emotional condition, do you have serious difficulty concentrating, remembering, or making decisions? Answer Entry Date Author Status No 04/24/2024 1:54 AM CDT Abebe Gar se RN Active documented in this encounter Plan of Treatment Not on file documented as of this encounter Goals Goal Patient Goal Type Associated Problems Recent Progress Patient-Stated? Author Family - family caregiver with be involved in care transitions and discharge planning Lifestyle No Asha Worthington, ENVIRONMENT FRIENDLY LANDSCAPE DESIGNER documented as of this encounter Visit Diagnoses Not on filedocumented in this encounter Additional Health Concerns Infection Onset Date Last Indicated Resolved Time COVID-19 Rule Out 07/19/2024 07/19/2024 07/19/2024 6:00 PM CARRIAGE OPERATOR Assessment Noted Time PHQ-9 Depression Total Score: 0 06/21/20 21 8:06 AM CARRIAGE OPERATOR documented as of this encounter Care Teams Financial Auditor Relationship Specialty Start Date End Date Apple Myles [place] [address] PCP - General NURSE PRACTITIONER 01/21/20 Pravin Rowley MD Three [facility]. [place] [address] [place] [address] [place] [facility] CARDIOVASCULAR DISEASE 12/17/17 06/08/24 Yohannes Heart MD 8 [place] [address] INTERNAL MEDICINE 05/31/20 documented as of this encounter
--- OUTSIDE RECORDS SUMMARY | 2025-05-25 03:31 | XMS_ITS | Encounter Summary ---
Author Organization [facility] Address [address] [place] [address] Care Team Providers Care Pipe Crew Foreman Name Role Phone Apple Myles NP Primary Care Provider [phone] Yohannes Heart MD Unavailable [phone] Encounter Details Date Type Department Care Team (Late st Contact Info) Description 07/02/2024 [employer] Message Enc [facility] Family Medicine - [place] [address] [place] [address] Apple Myles NP [address] [place] [address] Dexcom g7 sensor Social History Tobacco Use Types Packs/Day Years Used Date Smoking Tobacco: Former Cigarettes 2 17 1 988 - 2005 Cigars Passive Smoke Exposure: Past Smokeless Tobacco: Never Alcohol Use Standard Drinks/Week Comments Not Currently 0 (1 standard drink = 0.6 oz pur e alcohol) socially / but rarely [facility] Utilities Answer Date Recorded In the past 12 months has [employer], gas, oil, or water [employer] threatened to shut off services in your [...] place to sleep or slept in a fdc (including now)? No 06/27/2023 Housing Stability Vital Sign Answer Chong e Recorded In the last 12 months, was t here a time when you were not able to pay the mortgage or rent on time? No 04/24/2024 In the past 12 months, how m any times have you moved where you were living? 0 04/24/2024 At any time in the past 12 m [facility], were you homeless or living in a fdc (including now)? No 04/24/2024 Sex and Gender Information Value Date Recorded Sex Assigned at Male 07/19/2024 5:02 PM AN/SSN 2 4 OPERATOR Legal Sex Male 8:01 PM CDT [...] 1:54 AM Abebe Devries se, RN Active documented as of this encounter Mental Status * Because of a physical, mental, or emotional condition, do you have serious difficulty concentrating, remembering, or making decisions? Answer Entry Date Author Status No 04/24/2024 1:54 AM Abebe Devries se, RN Active documented in this encounter Plan of Treatment Not on file documented as of this encounter Goals Goal Patient Goal Type Associated Problems Recent Progress Patient-Stated? Author Family - family caregiver with be involved in care transitions and discharge planning Lifestyle No Asha Worthington, LEATHER SPLITTER documented as of this encounter Visit Diagnoses Not on filedocumented in this encounter Additional Health Concerns Infection Onset Date Last Indicated Resolved Time COVID-19 Rule Out 07/19/2024 07/19/2024 07/19/2024 6:00 PM AN/SSN 2 4 OPERATOR Assessment Noted Time PHQ-9 Depression Total Score: 0 05/07/20 24 11:53 AM AN/SSN 2 4 OPERATOR documented as of this encounter Care Teams Pipe Crew Foreman Relationship Specialty Start Date End Date Apple Myles NP [address] [place] [address] PCP - General NURSE PRACTITIONER 01/21/20 Yohannes Heart MD 8 [place] [address] INTERNAL MEDICINE 05/31/20 documented as of this encounter
--- OUTSIDE RECORDS SUMMARY | 2025-05-25 03:31 | XMS_ITS | Encounter Summary ---
Author Organization [facility] Address [facility] [place] [address] Care Team Providers Care Toxicology Supervisor Name Role Phone Pravin Rowley MD Unavailable [phone] Apple Myles NP Primary Care Provider [phone] Yohannes Heart MD Unavailable [phone] Encounter Details Date Type Department Care Team (Late st Contact Info) Description 05/30/2020 Prep for Procedure [facility] [place] [address] Ted Sargent MD 3 [place] [address] Social History Tobacco Use Types Packs/Day Years Used Date Smoking Tobacco: Former Cigarettes 2 17 1 988 - 2004 Smokeless Tobacco: Never Alcohol Use Standard Drinks/Week Comments Yes 0 (1 standard drink = 0.6 oz pur e alcohol) weekly PHQ-2 Answer Date Recorded PHQ-2 Score 0 01/21/2020 Sex and Gender Information Value Date Recorded Sex Assigned at Male 07/19/2024 5:02 PM EARLY CHILDHOOD EDUCATION COORDINATOR Legal Sex Male 8:01 PM CDT Gender [...] have Coronavirus / COVID-19? No / Unsure 05/31/2020 9:22 AM EARLY CHILDHOOD EDUCATION COORDINATOR documented as of this encounter Plan of Treatment Not on file documented as of this encounter Visit Diagnoses Diagnosis Pre-op exam- Primary Preoperative examination, unspecified documented in this encounter Additional Health Concerns Infection Onset Date Last Indicated Resolved Time COVID-19 Rule Out Comment:Resolving 05/31/2020 05/31/2020 06/02/2020 1:[address] COVID-19 Rule Out 07/19/2024 07/19/2024 07/19/2024 6:00 PM EARLY CHILDHOOD EDUCATION COORDINATOR documented as of this encounter Care Teams Toxicology Supervisor Relationship Specialty Start Date End Date Apple Myles NP [address] [place] [address] PCP - General NURSE PRACTITIONER 01/21/20 Pravin Rowley MD Three [facility]. [place] [address] [place] [address] [place] Goldbeater CARDIOVASCULAR DISEASE 12/17/17 06/08/24 Yohannes Heart MD 8 [place] [address] INTERNAL MEDICINE 05/31/20 documented as of this encounter
--- NOTE | 2025-05-25 09:24 | ECG_ITS ---
Test Date: 2025-05-25 10:44:27 Measurements Intervals [place] Rate: 72 P: 41 CT: 162 QRS: 76 QRSD: 93 T: -16 QT: 351 QTc: 386 Interpretive Statements SINUS RHYTHM DELAYED PRECORDIAL R/S TRANSITION MINIMAL Q WAVES- INFERIOR LEADS BORDERLINE ST-T WAVE ABNORMALITY- INFERIOR LEADS BORDERLINE ECG Compared to ECG 05/19/2025 09:00:15 No significant changes Electronically Signed On 05-25-2025 10:51:20 COMMUNITY LIVING SPECIALIST by Handy Gallegos D.O.
--- NOTE | 2025-05-25 10:15 | WPDHPUPDATE1 ---
History and Physical Update Update Date/Time: 05/25/25 10:15 History and Physical has been reviewed, including an updated exam of the patient. There are NO changes in the patient's condition. Risks, benefits, and alternatives have been discussed and questions answered. Patient agrees to proceed with procedure.
[2025-05-25] MEDS: ACETAMINOPHEN 500 MG TABLET 1000 MG PO (10:50)
[2025-05-25] MEDS: CELECOXIB 200 MG CAPSULE PO (10:50)
[2025-05-25] MEDS: KETOROLAC 15 MG/ML VIAL (*BKC) IV PUSH (10:50)
--- NOTE | 2025-05-25 12:10 | P.PNAN_ITS ---
Anes - Initial Pre Proc Eval Procedure: Operation Date: 05/25/25 12:00 Proposed Procedures p Left Rotator Cuff Repair - Luis Felipe Andrea MD Date/Time: 05/25/25 12:10 Surgeon: Luis Felipe Andrea MD Pre Op Diagnosis: Lt Shoulder Rot Cuff tear Patient Data Age: 49 Gender: M Height: 1.8 m Weight: 97.3 kg Last Vital Signs Temp 37.2 C 05/25/25 10:50 Pulse 77 05/25/25 10:50 Resp 16 05/25/25 10:50 BP 148/92 H 05/25/25 10:50 Pulse Ox 97 05/25/25 10:50 O2 Del Method Room Air 05/25/25 10:50 Allergies Allergy/AdvReac Type Severity Reaction Status Date / Time ciprofloxacin (From [facility]) Allergy Hives Verified 05/25/25 11:09 Home Medications ?Medication ?Instructions ?Recorded ?Confirmed ?Type cyclobenzaprine 10 mg tablet 10 mg PO DAILY 03/23/25 1 07/18/24 History fluticasone propionate 50 1 spray intranasal Q12H 02/2405/18/25 History mcg/actuation nasal spray,suspension metformin 500 mg tablet 500 mg PO DAILY 03/23/25 History nifedipine 30 mg tablet,extended 30 mg PO DAILY 05/18/25 History release pantoprazole 40 mg tablet,delayed 40 mg PO Q12H 05/18/25 History release testosterone cypionate 200 mg/mL 200 mg IM WEEKLY 02/2405/18/25 History intramuscular syringe tramadol 50 mg tablet 50 mg PO Q8H PRN pain 05/18/25 History clindamycin 1 %-benzoyl peroxide 5 1 applic topical DA PABLO #25 grams 05/07/25 05/18/25 Rx % topical gel losartan 25 mg tablet 25 mg PO DAILY 05/25/2508/18 History Laboratory Tests 05/25/25 10:39 POC Capillary Glucose 168 H mg/dl (65-105) Patient hx anesthesia problems: none Family hx anesthesia problems: none Results Review: All pre-operative results and documents have been reviewed as part of the pre- operative evaluation. [facility] Surgical History Surgical History Hx of lumbar discectomy 2019, 2019, 2021, 2022- Dr. Voss Hx of cervical spinal arthrodesis 2021 History of repair of left rotator cuff 2014- Dr. 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 Informed Consent: The patient's anesthetic plan and its attendant risks and benefits were discussed with the patient/family/POA. Questions were solicited and answers provided to the satisfaction of the patient/family/POA.
--- NOTE | 2025-05-25 14:28 | W.PM.PROC2 ---
Procedure Note - Detailed Date of Procedure 05/25/25 Pre-op Diagnosis Lt Shoulder Rot Cuff tear Post-op Diagnosis Same Procedure Performed REPAIR LEFT ROTATOR CUFF Surgeon Luis Felipe Andrea MD Anesthesia General Description of Procedure THE PATIENT WAS TAKEN TO THE OPERATING ROOM AND THEN INTUBATED AND PLACED IN THE BEACH CHAIR POSITION. THE LEFT UPPER EXTREMITY WAS PREPPED AND DRAPED IN THE NORMAL STERILE FASHION. AN INCISION WAS MADE OVER THE SHYLA-LATERAL ACROMION. THE FASCIA WAS IDENTIFIED. NEXT A MINI OPEN INCISION WAS MADE THROUGH THE DELTOID MUSCLE EXPOSING THE SUBACROMIAL SPACE. A LIMITED ACROMIOPLASTY WAS PREFORMED. THE ROTATOR CUFF WAS IDENTIFIED. THERE WAS A FULL THICKNESS TEAR. IT MEASURED APPROXIMATELY 1.5 CM X 1 CM. THE GREATER TUBEROSITY WAS DEBRIDED TO BLEEDING BONE. 1 ARTHREX SUTURE ANCHOR WITH 3 SEPARATE SUTURES WAS PLACED IN TO GOOD BONE. HARRIET-MCKENZIE TYPE REPAIRS WERE DONE TO THE ROTATOR CUFF AND THERE WAS GOOD APPROXIMATION TO THE GREATER TUBEROSITY. THE REPAIR WAS EXCELLENT. THERE WAS NO IMPINGEMENT ON THE REPAIR FROM THE ACROMION WITH RANGE OF MOTION. THE SUB SCAPULARIS TENDON WAS IDENTIFIED WELL. THERE WAS NO SIGNIFICANT TEAR IDENTIFIED. THE WOUND WAS IRRIGATED WITH COPIOUS AMOUNTS OF ANTIBIOTIC SOLUTION. THE DELTOID MUSCLE WAS REPAIRED WITH #2 FIBER WIRE AND 0 VICRYL SUTURE. THE SUBCUTANEOUS LAYER WAS APPROXIMATED WITH 2-0 VICRYL. THE SKIN WAS APPROXIMATED WITH 3-0 QUIL AND DERMABOND. STERILE DRESSING WAS APPLIED. PATIENT WAS EXTUBATED. Estimated Blood Loss -20.0 Complications No immediate complications Condition Stable Disposition PACU
[2025-05-25] MEDS: LACTATED RINGERS 1,000 ML 30 ML IV CONT (14:30)
--- NOTE | 2025-05-25 14:46 | WPDANESPNB ---
Anes - Peripheral Nerve Block Date/Time: 05/25/25 14:46 I have discussed with the patient/family/POA the placement of a peripheral nerve block for post-operative pain management, including associated risks, benefits, complications, and side effects. Alternative methods of post-operative analgesia were detailed. Questions were solicited and answers provided to the satisfaction of the patient/family/POA. Time-Out: A pre-procedural Time-Out was completed immediately before starting the procedure and confirmed: Patient Identification, Site, Procedure, Patient Position and the Availability of Requisite Equipment. Clinical Indications: Acute post-operative pain management requested by the operative surgeon. Nerve Block Insertion Note Anes-nerve block: interscalene left Patient position: supine Skin prep: chlorhexidine Needle: 22 gauge, stimulating, insulated echogenic needle. Needle length: 50 mm Technique: ultrasound Injectate: bupivacaine 0.5% with epi 5 mcg/ml (20cc- no epi) Observations: tolerated well Complications: none Procedure start time:: 1438 Procedure end time:: 1441
[2025-05-25] MEDS: oxyCODONE HCL (*CRX) 5 MG TAB IR PO (15:28)
--- NOTE | 2025-05-25 16:17 | SUR.PHASEII ---
1600: Patient ready for dc. Dr. Andrea at bedside speaking with patient and family.
--- NOTE | 2025-05-25 16:26 | SUR.PHASEII ---
Per Dr. Batres patient does not need to be evaluated by PT/OT before being discharged home.
== END 2025-05-25 16:40 | disposition home or self-care (01) ==
PROVIDERS: PCP Nurse Practitioner; Visit Provider Orthopaedic Surgery
PROC: (CPT 23420; principal; 2025-05-25 12:00)
DX: S46.012A Strain of muscle(s) and tendon(s) of the rotator cuff of left shoulder, initial encounter (principal); X50.0XXA Overexertion from strenuous movement or load, initial encounter; Z79.84 Long term (current) use of oral hypoglycemic drugs; Z87.891 Personal history of nicotine dependence
CPT/HCPCS: 23410; 82948; 93005; A9270; C1713; J1100; J1171; J1885; J2003; J2250; J2405; J2704; J3010; J7120